=== PATIENT | female | born 1960 | race Caucasian/White ===

== ENCOUNTER 2024-09-29 10:32 | Emergency (ER) | payer OTHER ==
[~2024-09-29] VITALS: Ht 152.4 cm; Wt 84.0 kg
[2024-09-29 10:47] VITALS: BP 124/73
[2024-09-29 11:16] LABS: BASO% 0.1 % (0-3); EOS% 0.7 % (0-8); HEMATOCRIT 47.1 % (37.0-47.0); HEMOGLOBIN 15.3 g/dl (12.0-16.0); IMMATURE GRANULOCYTES 0.9 % (0.0-5.0); LYMPH% 37.6 % (15-41); MEAN CELL VOLUME 90.2 fL CALC (80.0-100.0); MEAN CORPUSCULAR HGB 29.3 pG CALC (26.0-32.0); MEAN CORPUSCULAR HGB CONC 32.5 g/dL CAL (32.0-36.0); MONO% 7.1 % (2-13); NEUT# 5.25 thou/uL (2.00-7.15); NEUT% 53.6 % (42-76); RED BLOOD COUNT 5.22 mill/uL (4.20-5.60); RED CELL DISTRI WIDTH 13.9 % (11.5-15.5)
[2024-09-29 11:20] LABS: ALKALINE PHOSPHATASE 64 u/l (38-126); ANION GAP 12 (6-22 (CALC)); BILIRUBIN, TOTAL 0.6 mg/dL (0.02-1.3); BUN 17 mg/dL (8-23); BUN/CREATININE RATIO 22 (12-20 (CALC)); CARBON DIOXIDE 28 mmol/l (22-30); CHLORIDE 101 mmol/l (95-108); CREATININE 0.8 mg/dL (0.5-1.0); ESTIMATED GFR 83 ML/MIN (>=90 (CALC)); POTASSIUM 3.9 mmol/l (3.5-5.1); SGOT/AST 36 u/l (9-36); SODIUM 137 mmol/l (137-146); TOTAL PROTEIN 7.1 g/dL (6.3-8.2)
[2024-09-29] MEDS ORDERED: IPRATROPIUM-Albuterol 0.5MG-2.5MG/3 ML NEB ONE (12:20)
[2024-09-29] MEDS ORDERED: PROMETHAZINE PO (12:32)
[2024-09-29] MEDS ORDERED: BENZONATATE200 MG PO (12:32)
[2024-09-29] MEDS ORDERED: VENTOLIN HFA108 MCG IN (12:32)
[2024-09-29] MEDS ORDERED: [UNRECOGNIZED DRUG - OTHER] PO (12:32)
[2024-09-29] MEDS ORDERED: PREDNISONE20 MG PO (12:32)
[2024-09-29 12:50] VITALS: BP 124/73
== END 2024-09-29 13:08 | disposition home or self-care (01) | DRG 195 ==
LOC: ED 10:32
PROVIDERS: Family Medicine
DX: J10.1 Influenza due to other identified influenza virus with other respiratory manifestations (principal); Z20.822 Contact with and (suspected) exposure to COVID-19
CPT/HCPCS: J1100